=== PATIENT | female | born 1990 | race Caucasian/White ===

== ENCOUNTER 2020-06-22 15:01 | Emergency (ER) | payer OTHER, SELFPAY ==
[2020-06-22 15:02] VITALS: BP 115/73; PULSE 55; RESP 16; TEMP 36.2; O2SAT 100; BMI 22.8
--- NOTE | 2020-06-22 15:27 | CT_ITS ---
STUDY: CT ABDOMEN AND PELVIS WITHOUT CONTRAST REASON FOR EXAM: Female, 29 years old. Right lower quadrant pain RADIATION DOSAGE (If Supplied By Facility): CTDIvol = ( 11.02 ) mGy, DLP = ( 431.74 ) mGycm TECHNIQUE: Transaxial images were obtained from the dome of the diaphragm to the symphysis pubis without oral contrast, and without intravenous contrast. Sagittal and coronal images were reconstructed. Individualized dose optimization techniques were used for this CT. COMPARISON: None. FINDINGS: Examination is technically limited due to motion artifact related to nonbreath-holding. Some diagnostic information is available. Solid organs are normal. There is no intestinal obstruction. Appendix is not definitively visualized with a questionable normal structure resembling an appendix. There is no intra-abdominal free fluid, gas, fluid collections or inflammation. There is minimal adnexal edema, likely ovulatory related. There is a benign calcified granuloma in the left lower lung bases. This finding does not need further attention. CT/Abdomen/Pelvis W IV Cont ONLY IMPRESSION: 1. No acute abdominal findings. 2. Unremarkable abdomen with mild technical limitations. Electronically Signed: Sruthi Preciado, at 16:35 EDT Tel , Service support ,
--- NOTE | 2020-06-22 15:29 | ED.VISSUMM ---
- ER Visit Summary Date of Service: 06/22/20 Chief Complaint: Right lower quadrant/pelvic pain History of Present Illness: The patient is a 29 F history of anxiety and hypothyroidism. States that around 930 this morning she had relatively sudden onset right lower quadrant and pelvic abdominal pain and cramping. She denies any vaginal bleeding or discharge. Last menstrual period was about 3 weeks ago. She denies any dysuria. No fever or chills. She did have nausea today. The pain is somewhat worsened. She denies any fever. Is never had pain like this before. Is never had any abdominal or pelvic surgeries. Physical Examination: Young female vital signs stable afebrile. H EENT exam unremarkable. Neck nontender no lymphadenopathy. Lungs clear to auscultation bilaterally. Heart regular rhythm rate about 60 no murmur. Abdomen soft. Nondistended. Normal bowel sounds. No peritoneal signs. She has tenderness in the right lower quadrant but appears to be medially and lower towards the suprapubic region. Is not classic McBurney's point tenderness. There is no rebound, guarding or rigidity. There is no Gavin sign. There is no Rovsing side. Extremities moving all 4. No edema nontender. Back nontender. Neurologically she is awake and alert with no focal motor deficits. Test Results: CBC shows a white count of 4. Hemoglobin of 10. No recent current labs. Chemistries unremarkable normal creatinine gap. UA normal no signs of infection or blood. Serum test negative. CT abdomen pelvis IV contrast shows no acute abnormality. The appendix is not visualized but there is no acute signs of appendicitis. The radiologist does not comment on any pathology in the pelvis. I discussed all test results with the patient. She and I discussed pelvic ultrasound she is deferring at this time and I do not feel like it is medically necessary. Emergency Department Course and Treatment: Patient with right lower quadrant/pelvic abdominal pain. Clinically I think this is more likely to be CURRENCY COUNTER like an ovarian cyst. Appendicitis is in the differential. Patient was offered pain and nausea meds she does not want anything at this time. Organ obtain a CAT scan and screening labs. Treatment Plan: Tylenol and Motrin for pain. Follow-up with her nurse gericare aide teacher next week. Return if feeling worse. Disposition: Discharge Impression: Acute right lower quadrant abdominal and pelvic pain secondary to right-sided ovarian cyst This note was generated with Dragon dictation software. It may contain incorrect words, spelling, and punctuation that were not noted in review of the chart prior to signing ED Disposition - Plan for ED Patient: Referrals: Care Physician,No Primary [Primary Care Provider] -
[2020-06-22 15:39] LABS: Absolute Lymphocyte Count 1.48 X10^3/uL (0.83-4.51); Absolute Neutrophil Count 2.5 X10^3/uL (2.0-7.7); Basophil# 0.02 X10^3/uL; Basophil% 0.4 % (0-1); Eosinophil# 0.05 X10^3/uL; Eosinophils% 1.1 % (0-5); Hematocrit 35.2 % (37-47); Hemoglobin 10.1 g/dL (12.0-15.0); Lymphocyte # 1.48 X10^3/ul (4.0); Mean Corp Hgb Conc 28.7 g/dL (32-36); Mean Corpuscular Hgb 21.4 pg (27.0-32.0); Mean Corpuscular Volume 74.4 fL (81-99); Mean Platelet Vol. 10.8 fl (6.2-12.0); Monocyte% 8.9 % (0-10); NRBC Flagged by Analyzer 0 % (0-5); Neutrophil # 2.52 X10^3/uL (2.7-7.7); Neutrophil % 56.4 % (47-70); Platelet Count 267 K/mm3 (150-450); RBC Distribution Width CV 15.5 % (11.6-14.6); Red Blood Count 4.73 M/mm3 (4.2-5.4); White Blood Count 4.5 K/mm3 (4.4-11.0)
[2020-06-22] MEDS: 0.9% Normal Saline 1,000 ML 125 ML IV (15:40)
[2020-06-22 15:56] LABS: Anion Gap 5 (5-15); BUN 10 mg/dL (7-18); BUN/Creat Ratio 13.9 RATIO (10-20); Chloride 109 mmol/L (98-107); Creatinine, Serum 0.72 mg/dL (0.55-1.02); EST Glomerular Filtration Rate 102 mL/min (>60); Est Glom Filt Rate - Afr Amer 123 mL/min (>60); Glucose 85 mg/dL (74-106); Potassium 3.5 mmol/L (3.5-5.1); Sodium Level 142 mmol/L (136-145)
[2020-06-22 16:01] LABS: Internal QC Validated? YES +Cl - CLEAR BKGD; Pregnancy, Serum, hCG Quali. NEGATIVE Negative
[2020-06-22 16:04] LABS: Bacteria 0 SEEN /hpf (None Seen); Mucous, Urine 0 SEEN /hpf (<or=2+); Red Blood Cells-Urine 0 SEEN /hpf (0-5); Squamous Epithelial Cells - UA 0 SEEN /hpf (5-10)
[2020-06-22 16:18] LABS: Color, Urine Yellow (Yellow); Glucose, Dipstick Normal (Normal); Ketone-Dipstick Negative (Negative); Leukocyte Esterase-Dipstick 100 /ul (Negative); Nitrite-Dipstick Negative (Negative); Occult Blood-Urine Negative /ul (Negative); Protein-Dipstick Negative (Negative); Urine Bilirubin Dipstick Negative (Negative); Urine Clarity Clear (Clear); Urine Urobilinogen Normal (Normal)
[2020-06-22 17:16] LABS: White Blood Cells 0-5 SEEN /hpf (0-5)
--- NOTE | 2020-06-22 17:38 | DCINST.ED_ITS ---
ED Disposition - Plan for ED Patient: Disposition: Home or Assisted Living Instructions: ED Cyst Ovarian Referrals: Care Physician,No Primary [Primary Care Provider] - 1 Week if not improving Additional Instructions: Your labs are unremarkable. Your test and urine were both negative. They did not see an appendicitis on your CAT scan. Clinically I feel that your pain is from a ovarian cyst on your right ovary. Motrin and/or Tylenol for pain. Follow-up with your nurse profile grinder technician next week if pain is not improving. Return to the emergency department if you are feeling a lot worse.
[2020-06-22 17:50] VITALS: BP 103/70; PULSE 56; RESP 15
== END 2020-06-22 17:51 | disposition home or self-care (01) ==
PROVIDERS: Emergency Provider Emergency Medicine
DX: N83.201 Unspecified ovarian cyst, right side (principal); F41.9 Anxiety disorder, unspecified; E03.9 Hypothyroidism, unspecified; Z79.899 Other long term (current) drug therapy
CPT/HCPCS: 74177; 80048; 81001; 84703; 85025; 96360; 96361; 99284; J7030; Q9967; A4216